=== PATIENT | male | born 1950 | race Caucasian/White ===

== ENCOUNTER 2016-08-20 19:19 | Emergency (ER) | payer SELFPAY ==
[2016-08-20 19:27] VITALS: RESP 16; TEMP 98.2
--- NOTE | 2016-08-20 19:46 | EDPHY ---
H & P Time Seen by Provider: 08/20/16 19:30 HPI/ROS: CHIEF COMPLAINT: Dog bite HISTORY OF PRESENT ILLNESS: 66-year-old male presents emergency department with a dog bite to his left forearm. Patient reports this was an unknown dog bit him that is owned by a homeless man. Police were contacted and on scene. Patient's tetanus is up-to-date, unknown rabies status of dog. Patient is right -hand-dominant, he reports mild tingling to the dorsal aspect of his left hand. No other complaints. Smoking Status: Current every day smoker Physical Exam: GEN: Awake, alert, oriented, no acute distress RESP: nl resp effort MSK: Full flexion extension against resistance of left wrist and elbow, sensation intact to light touch, cap refill less than 2 seconds, puncture wound to dorsal aspect left forearm, small superficial abrasions to ventral aspect of left forearm and medial left forearm Constitutional: Initial Vital Signs Temperature (C) 36.8 C 08/20/16 19:25 Heart Rate 74 08/20/16 19:25 Respiratory Rate 16 08/20/16 19:25 Blood Pressure 158/92 H 08/20/16 19:25 O2 Sat (%) 93 08/20/16 19:25 O2 Delivery Mode Room Air Allergies/Adverse Reactions: No Known Allergies Allergy (Verified 08/20/16 19:27) Home Medications: Medication Instructions Recorded Ascorbic Acid [Vitamin C 500 mg 500 mg PO DAILY 11/09/15 (*)] Cyanocobalamin [Vitamin B12 (*)] 5,000 mcg PO DAILY 11/09/15 Pyridoxine HCl [Vitamin B-6 100 mg 300 mg PO DAILY 11/09/15 (*)] Vitamin B Complex [B Complex] 1 each PO DAILY 11/09/15 Acetaminophen [Tylenol 325mg (*)] 650 mg PO Q4 PRN #0 tab 11/15/15 Ibuprofen [Motrin (*)] 400 mg PO Q4 PRN #0 tab 11/15/15 Amoxicillin/Clavulanate Pot 875 mg PO BID #6 tab 08/20/16 [Augmentin 875Mg] MDM/Departure - MDM Imaging: I viewed and interpreted images myself - Depart Disposition: Home, Routine, Self-Care Clinical Impression: Dog bite of left arm Qualifiers: Encounter type: initial encounter Qualified Code(s): S41.152A - Open bite of left upper arm, initial encounter Condition: Good Instructions: Animal Bite (ED) Additional Instructions: Warm compresses 5 times a day for 5 minutes, take 600 mg of ibuprofen every 8 hours with food as needed for pain for 3-5 days, take antibiotics twice daily for the next 3 days. Return to the emergency department for any fevers, increased redness, swelling, pain, drainage, signs of infection. Prescriptions: Amoxicillin/Clavulanate Pot [Augmentin 875Mg] 875 mg PO BID #6 tab Referrals: Patient,NotPresent [Unknown] - As per Instructions
[2016-08-20 20:52] VITALS: BP 157/96; PULSE 76; O2SAT 95
== END 2016-08-20 20:52 | disposition home or self-care (01) ==
LOC: EDUNIT#
DX: S41.152A Open bite of left upper arm, initial encounter (principal); F17.200 Nicotine dependence, unspecified, uncomplicated; W54.0XXA Bitten by dog, initial encounter

== ENCOUNTER 2017-02-05 18:15 | Emergency (ER) | payer MEDICAID, OTHER ==
[2017-02-05 18:24] VITALS: BP 154/89; PULSE 84; RESP 18; TEMP 98.1; O2SAT 96
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
== END 2017-02-05 20:39 | disposition home or self-care (01) ==
LOC: EDUNIT#
DX: S16.1XXA Strain of muscle, fascia and tendon at neck level, initial encounter (principal); F17.200 Nicotine dependence, unspecified, uncomplicated; V19.49XA Pedal cycle driver injured in collision with other motor vehicles in traffic accident, initial encounter; Y92.410 Unspecified street and highway as the place of occurrence of the external cause

== ENCOUNTER 2017-03-22 20:29 | Emergency (ER) | payer SELFPAY ==
[2017-03-22 20:39] VITALS: TEMP 96.1
--- NOTE | 2017-03-22 20:44 | EDPHY ---
H & P Time Seen by Provider: 03/22/17 20:35 HPI/ROS: CHIEF COMPLAINT: Allergic reaction HISTORY OF PRESENT ILLNESS: Patient is a 66-year-old male with a history of allergic reaction who presents to the emergency department after having allergic reaction. Patient was in the supermarket and speaking with another individual. He was offered some unknown substance. He subsequently eat it. 2 min after eating the unknown substance he began to cough. He then developed a significant rash. The patient reports facial swelling. EMS was contacted. The patient was given IM epinephrine. The patient states he is now feeling much better. He denies any shortness of breath. He has no facial or throat swelling. He states his rash has resolved. He has no chest pain or shortness of breath. No abdominal pain. The patient initially had some mild nausea but that is resolved. Patient states he has had 5 allergic reactions. REVIEW OF SYSTEMS: My complete review of systems is negative except as mentioned in the HPI. Past Medical/Surgical History: Previous allergic reaction Past surgical history: Orthopedic surgery Social history: The patient smokes. He denies drug use. He denies alcohol. Smoking Status: Light smoker Physical Exam: Vitals noted GENERAL: Well-appearing, in no acute distress, alert. HEENT: Eyes normal to inspection, normal pharynx, no signs of dehydration. Uvula is midline. No swelling. NECK: No thyromegaly, no lymphadenopathy, supple. RESPIRATORY: Clear to auscultation bilaterally, no rales, rhonchi or wheezing. Normal. CVS: Regular rate and rhythm, no rubs, murmurs, or gallops. ABDOMEN: Soft, nontender, nondistended, no organomegaly. BACK: Normal to inspection, no CVA tenderness. SKIN: Normal color, no rash, warm, dry. No pallor. Normal exam. EXTREMITIES: No pedal edema, no calf tenderness, no Homans sign or cords, no joint swelling. NEURO/PSYCH: Alert and oriented x3, normal mood and affect, normal motor sensory exam. No obvious cranial nerve deficit. Constitutional: Initial Vital Signs Temperature (C) 35.6 C L 03/22/17 20:36 Heart Rate 69 03/22/17 20:36 Respiratory Rate 12 03/22/17 20:36 Blood Pressure 116/87 H 03/22/17 20:36 O2 Sat (%) 97 03/22/17 20:36 O2 Delivery Mode Room Air Allergies/Adverse Reactions: No Known Allergies Allergy (Verified 08/20/16 19:27) Home Medications: Medication Instructions Recorded Ascorbic Acid [Vitamin C 500 mg 500 mg PO DAILY 11/09/15 (*)] Cyanocobalamin [Vitamin B12 (*)] 5,000 mcg PO DAILY 11/09/15 Pyridoxine HCl [Vitamin B-6 100 mg 300 mg PO DAILY 11/09/15 (*)] Vitamin B Complex [B Complex] 1 each PO DAILY 11/09/15 Ibuprofen [Motrin (*)] 400 mg PO Q4 PRN #0 tab 11/15/15 Medical Decision Making ED Course/Re-evaluation: In the emergency department I discussed possible etiologies with the patient. I answered all his questions. Some my evaluation the patient was doing well. I do not feel the need further intervention. He will be observed. 2100: I rechecked the patient. He is lying comfortably in his room. Vital signs are stable. No respiratory distress. No signs allergic reaction. 2124: The patient is doing well. No new complaints. No signs of allergic reaction. 2139: Patient is doing well. No complaints. No signs of allergic reaction. Patient was given warnings prior to leaving. Will return with worsening symptoms. Differential Diagnosis: My differential includes but is not limited to allergic reaction, anaphylaxis, toxic exposure Departure - Departure Disposition: Home, Routine, Self-Care Clinical Impression: Allergic reaction Qualifiers: Encounter type: initial encounter Qualified Code(s): T78.40XA - Allergy, unspecified, initial encounter Condition: Good Instructions: Food Allergy (ED) Additional Instructions: Return with increasing rash, shortness of breath, chest pain or any other concerns. Referrals: Damian Ho MD [[facility] Primary Care Provider] - 5-7 days, if not improved
[2017-03-22 21:09] VITALS: RESP 16
[2017-03-22 22:14] VITALS: BP 113/69; PULSE 71; O2SAT 98
== END 2017-03-22 22:08 | disposition home or self-care (01) ==
LOC: EDUNIT#
DX: T78.40XA Allergy, unspecified, initial encounter (principal); F17.200 Nicotine dependence, unspecified, uncomplicated

== ENCOUNTER 2018-01-11 03:11 | Emergency (ER) | payer SELFPAY ==
[2018-01-11 03:17] VITALS: BP 139/92
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
== END 2018-01-11 05:05 | disposition home or self-care (01) ==
DX: M54.5 Low back pain (principal); G89.29 Other chronic pain; Z59.0 Homelessness; F17.200 Nicotine dependence, unspecified, uncomplicated